=== PATIENT | female | born 1955 | race Caucasian/White ===

== ENCOUNTER 2020-08-04 13:50 | Outpatient (RCR) | payer MEDICARE, SELFPAY ==
[2020-08-04] MEDS: COVID-19 VACC, MRNA(PFIZER)/PF 30 MCG/0.3 ML SYRINGE IM (18:15)
[2020-08-25] MEDS: COVID-19 VACC, MRNA(PFIZER)/PF 30 MCG/0.3 ML SYRINGE IM (18:01)
== END 2020-08-04 23:59 ==
LOC: IMMUN 13:50
PROVIDERS: PCP Internal Medicine; Visit Provider Family Medicine
DX: Z23 Encounter for immunization (principal)
CPT/HCPCS: 0001A; 0002A; 91300